=== PATIENT | male | born 1985 | race Hispanic/Latino ===

== ENCOUNTER → 2023-03-28 | Emergency (ER) | payer BC ==
[~2023-03-28] MED LIST: BACITRACIN OINTMENT 14 GM TUBE TOP ONE; MORPHINE 4 MG/ML SYR ONE; NA CHLORIDE 0.9% 2,000 ML ONE; PANTOPRAZOLE 40 MG INJ ONE; TDAP (DIPHTH,PERTUSS(ACELL),TET VAC) 0.5 ML VIAL IMVAC ONE
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
[2023-03-28 21:59] LABS: Absolute Lymphocytes (CBC) 5.5 K/uL (0.7-4.9); Hematocrit 41.2 % (39.6-49.0); Lymphocytes % 35.9 % (15.3-44.8); MCV 86.1 fL (80-100); MPV 8.6 fL (7.6-11.3); Platelets 281 thou/uL (152-406); RBC Red Blood Cell Count 4.78 M/uL (4.33-5.43)
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
[2023-03-28 22:02] LABS: Albumin 3.6 g/dL (3.4-5.0); Bilirubin Total 0.2 mg/dL (0.2-1.0); Potassium 3.2 mEq/L (3.5-5.1); Protein, Total 8.2 g/dL (6.4-8.2)
[2023-03-28 22:33] LABS: Protime INR 1.07
[2023-03-29 01:34] VITALS: BP 190/84; TEMP 98.2
[2023-03-29 01:46] VITALS: O2SAT 98
== END ==
LOC: ER 21:14
DX: T23.201A Burn of second degree of right hand, unspecified site, initial encounter (principal); T22.211A Burn of second degree of right forearm, initial encounter; T21.12XA Burn of first degree of abdominal wall, initial encounter; T20.10XA Burn of first degree of head, face, and neck, unspecified site, initial encounter; T23.102A Burn of first degree of left hand, unspecified site, initial encounter; I10 Essential (primary) hypertension; F41.9 Anxiety disorder, unspecified
CPT/HCPCS: 93005; 85025; 36415; 85610; 83605; 85730; 80053; 71045; 96375; 96372; 96374; 99285; C9113; J7030